=== PATIENT | female | born 1975 | race Caucasian/White ===

== ENCOUNTER 2016-08-01 09:09 | Inpatient (IN) ==
[2016-08-01] MEDS ORDERED: PEPCID PO ONE (09:25)
[2016-08-01] MEDS ORDERED: REGLAN PO ONE (09:25)
[2016-08-01] MEDS ORDERED: LR 1,000 ML IV SCH ×2 (09:25→10:00)
[2016-08-01] MEDS ORDERED: KEFZOL 1 GM/D5W 1 GM/50 ML IVPB IV PRN (09:25)
[2016-08-01] MEDS ORDERED: LR 500 ML IV ONE (09:25)
[2016-08-01] MEDS ORDERED: REGLAN IV ONE (09:30)
[2016-08-01] MEDS ORDERED: PEPCID IV ONE (09:30)
[2016-08-01] MEDS ORDERED: BICITRA PO ONE (09:30)
--- NOTE | 2016-08-01 09:51 | HISTORY AND PHYSICAL ---
ADMITTING PHYSICIAN: Dr. Serrano. ADMITTING DIAGNOSES: 1. 37-week . 1. Previous section. 2. Advanced maternal age. 3. Chronic hypertension. 4. Diabetes. 5. Morbid obesity. 6. Undesired fertility. SUMMARY: Dorene Melvin is a 41-year-old 2, para 2-0-0-2. Her first ended in a section for twins. She is requesting repeat . She also desires permanent tubal sterilization. She understands this is a permanent nonreversible procedure. She has been followed closely in our office and at Dr. Mcconnell, our maternal medicine specialist. By Dr. Mcconnell has recommended delivery at 37 weeks due to her complications of diabetes, advanced maternal age, chronic hypertension and history of DVT for which she is on Lovenox. She has taken Lantus and metformin for her diabetes. She is on labetalol for chronic hypertension. PAST MEDICAL HISTORY: Patient has history of morbid obesity, chronic hypertension and diabetes. Her gallbladder has been removed. Appendix has also been removed. She has had a tonsillectomy. She has history of DVTs. ALLERGIES: Sulfa drugs and Bactrim. CURRENT MEDICATIONS: Include Lovenox, Lantus, metformin and labetalol. PHYSICAL EXAMINATION: GENERAL: Shows a morbidly obese female. Weight is 391 pounds. This is a 75-pound weight gain during this . VITAL SIGNS: Blood pressure is 149/98. CARDIOVASCULAR: Regular rate and rhythm without murmurs, rubs, or gallops. PULMONARY: Clear. BREASTS: No masses. ABDOMEN: Gravid. Cervix is closed. EXTREMITIES: 2+ edema. IMPRESSION: 1. Term . 2. Previous section requesting repeat section. 3. Undesired fertility. 4. Advanced maternal age. 5. Chronic hypertension. 6. Diabetes. 7. History of deep vein thrombosis. PLAN: Will proceed with repeat and tubal sterilization. Risks of the surgery including pain, bleeding, infection, bowel, bladder injury and anesthesia complications have been discussed. She understands the failure rate and nonreversible nature of tubal sterilization. cc: Tristan Serrano MD
[2016-08-01] MEDS ORDERED: XYLOCAINE-MPF 1% 5 ML ONE (10:16)
[2016-08-01 10:50] LABS: MANUAL DIFF NEEDED? NO
[2016-08-01 10:53] LABS: BASO% 0.4 % (0.0-0.8); EOS# 0.08 X1000 (0.0-0.7); EOS% 0.8 % (0.0-10.0); HEMATOCRIT 38.2 % (37.0-47.0); HEMOGLOBIN 13.2 g/dL (12.0-16.0); IMM GRAN# 0.04 X1000 (0.0-0.04); IMM GRAN% 0.4 % (0.0-0.5); LYMPH# 2.04 X1000 (1.2-3.4); LYMPH% 19.7 % (20.5-51.1); MCH 31.5 PG (27-31); MCHC 34.6 g/dL (33-37); MCV 91.2 FL (81-99); MONO# 0.88 X1000 (0.11-0.59); MONO% 8.5 % (1.7-9.3); MPV 11.4 FL (7.4-10.4); NEUT% 70.2 % (42.2-75.2); PLT 179 X1000 (130-400); RBC 4.19 XMIL (4.2-5.4)
[2016-08-01] MEDS ORDERED: FENTANYL ONE ×2 (12:03→13:47)
[2016-08-01] MEDS ORDERED: DURAMORPH ONE ×2 (12:03→13:48)
[2016-08-01] MEDS ORDERED: METHERGINE ONE (12:04)
[2016-08-01] MEDS ORDERED: PITOCIN 20 UNITS/LR 20 UNITS/1,000 ML IV.SOLN ONE ×2 (12:04→15:07)
[2016-08-01 12:13] LABS: URINE SOURCE VOIDED
[2016-08-01 12:20] LABS: BILIRUBIN URINE NEGATIVE (NEGATIVE); BLOOD URINE 2+ (NEGATIVE); CLARITY SL. CLOUDY (CLEAR); COLOR AMBER; GLUCOSE URINE NEGATIVE (NEGATIVE); LEUKOCYTES URINE 1+ (NEGATIVE); NITRITE URINE NEGATIVE (NEGATIVE); PH URINE 6.5; SP GRAVITY URINE 1.015; UROBILINOGEN URINE 1+(1 mg/dL)
[2016-08-01] MEDS ORDERED: LABETALOL IV ONE (12:29)
[2016-08-01] MEDS ORDERED: XYLOCAINE-MPF 2% ONE (12:32)
[2016-08-01] MEDS ORDERED: M-M-R II VACCINE SUBQ ONE (13:32)
[2016-08-01] MEDS ORDERED: PITOCIN 20 UNITS/LR 20 UNITS/1,000 ML IV.SOLN IV ONE ×2 (13:32→16:51)
[2016-08-01] MEDS ORDERED: DEMEROL IM PRN ×2 (13:32→16:51)
[2016-08-01] MEDS ORDERED: CYTOTEC PO PRN ×2 (13:32→16:51)
[2016-08-01] MEDS ORDERED: MOTRIN PO PRN (13:32)
[2016-08-01] MEDS ORDERED: HYDROXYZINE IM PRN ×2 (13:32→16:51)
[2016-08-01] MEDS ORDERED: PERCOCET-10 PO PRN (13:32)
[2016-08-01] MEDS ORDERED: NORCO-5 PO PRN (13:32)
[2016-08-01] MEDS ORDERED: AMBIEN PO PRN ×2 (13:32→16:51)
[2016-08-01] MEDS ORDERED: BOOSTRIX VACCINE IM ONE (13:32)
[2016-08-01] MEDS ORDERED: DULCOLAX PR PRN ×2 (13:32→16:51)
[2016-08-01] MEDS ORDERED: MYLICON PO PRN ×2 (13:32→16:51)
[2016-08-01] MEDS ORDERED: PITOCIN IM PRN ×2 (13:32→16:51)
[2016-08-01] MEDS ORDERED: HYDROXYZINE PO PRN ×2 (13:32→16:51)
[2016-08-01] MEDS ORDERED: PERCOCET-5 PO PRN (13:32)
[2016-08-01] MEDS ORDERED: DEMEROL PO PRN ×4 (13:32→16:51)
[2016-08-01] MEDS ORDERED: PHENERGAN IM PRN ×2 (13:32→16:51)
[2016-08-01] MEDS ORDERED: NORCO-10 PO PRN (13:32)
[2016-08-01] MEDS ORDERED: TORADOL IV SCH (13:45)
[2016-08-01] MEDS ORDERED: LOVENOX SUBQ SCH (13:45)
[2016-08-01] MEDS ORDERED: PITOCIN 10 UNITS/LR 10 UNIT/1,000 ML IV.SOLN IV SCH ×2 (13:45→17:00)
[2016-08-01] MEDS ORDERED: ZOFRAN ONE (13:47)
[2016-08-01] MEDS ORDERED: PITOCIN ONE (13:47)
--- NOTE | 2016-08-01 17:47 | OPERATIVE NOTE ---
PROCEDURE DATE: 08/01/2016 SURGEON: Dr. Serrano. RATE CLERK PASSENGER: Dr. Bettencourt. ANESTHESIA: Epidural. OPERATION PERFORMED: Repeat low transverse section and tubal sterilization. PREOPERATIVE DIAGNOSES: 1. 37-week . 2. Previous section. 3. Advanced maternal age. 4. Chronic hypertension. 5. Diabetes. 6. Morbid obesity. 7. Undesired fertility. POSTOPERATIVE DIAGNOSES: 1. 37-week . 2. Previous section. 3. Advanced maternal age. 4. Chronic hypertension. 5. Diabetes. 6. Morbid obesity. 7. Undesired fertility. FINDINGS: At 1258 a 6-pound 9-ounce female infant was delivered in a vertex presentation. Apgars were 9 at 1 minute and 10 at 5 minutes. SUMMARY: Patient was taken back to the operating room and after attempt of spinal anesthesia an epidural anesthetic was placed. She was then placed in a supine position with a left lateral tilt. The abdomen was prepped and draped in the usual fashion. A Castrejon catheter was placed in the urinary bladder. Once satisfactory conduction anesthesia was demonstrated, a repeat vertical incision was made from the umbilicus to the symphysis. This was carried down through approximately 10 cm of adipose tissue to the fascia and the fascia was excised vertically. The rectus muscle was in midline. The peritoneum was entered. The lower uterine segment was identified and a low transverse incision was made well above the bladder. This incision was extended laterally using digital pressure. Membranes were ruptured revealing clear fluid. The infant's head was delivered this incision without difficulty. The shoulders and body delivered without complications. The oropharynx was bulb suctioned. The cord was clamped and cut. The infant was handed to the nurses for further care and evaluation. Cord blood was obtained. Placenta was manually removed. The uterus delivered on abdominal wall explored. All membrane fragments removed. Myometrium was then reapproximated using a running #1 chromic interlocking suture followed by several [id number] chromic sutures for complete hemostasis. Due to patient's desire for permanent nonreversible sterilization a Bells type tubal ligation was performed. A vascular window was made through the mesosalpinx and the tubes were tied proximally and distally and the section was and excised. Uterus placed back in pelvic cavity. Uterine incision and tubal ligation sites were examined and found to be hemostatic. First and 2nd sponge, instrument and needle count reported as correct as the peritoneum was closed using a running chromic suture. Third and final of sponge, instrument and needle count reported as correct the fascia was closed using running Vicryl sutures x2 and the adipose tissue was closed in layers using both interrupted and running Vicryl sutures. The skin edges reapproximated using sascha. Blood loss estimated at 500 mL. There were no complications. The patient went to the recovery room in stable condition. We will monitor her blood pressure and blood sugars. cc: Tristan Serrano MD
[2016-08-01] MEDS: GLUCOPHAGE PO SCH (17:58)
[2016-08-01] MEDS: TORADOL IV SCH ×2 (17:58→22:45)
[2016-08-01] MEDS: LOVENOX SUBQ SCH (17:59)
[2016-08-01] MEDS: MYLICON PO SCH ×2 (17:59→22:02)
[2016-08-01] MEDS ORDERED: MYLICON PO SCH (18:00)
[2016-08-01] MEDS ORDERED: NARCAN INJ PRN (18:25)
[2016-08-01] MEDS ORDERED: BENADRYL IV PRN (18:25)
[2016-08-01] MEDS ORDERED: ZOFRAN IV PRN ×2 (18:25)
[2016-08-01] MEDS ORDERED: ZOFRAN ODT PO PRN (18:25)
[2016-08-01] MEDS ORDERED: DILAUDID IV PRN (18:26)
[2016-08-01] MEDS ORDERED: PERICOLACE PO SCH (21:00)
[2016-08-01] MEDS: PERICOLACE PO SCH (22:03)
[2016-08-01] MEDS: TRANDATE PO SCH (22:03)
[2016-08-02] MEDS: TORADOL IV SCH ×2 (05:33→12:28)
[2016-08-02 06:54] LABS: HEMATOCRIT 35.2 % (37.0-47.0); HEMOGLOBIN 11.7 g/dL (12.0-16.0); MCH 30.6 PG (27-31); MCHC 33.2 g/dL (33-37); MCV 92.1 FL (81-99); MPV 11.6 FL (7.4-10.4); RBC 3.82 XMIL (4.2-5.4)
[2016-08-02] MEDS: GLUCOPHAGE PO SCH ×2 (07:39→16:38)
[2016-08-02] MEDS: PRILOSEC PO SCH (07:40)
[2016-08-02] MEDS: LOVENOX SUBQ SCH ×3 (08:18→21:24)
[2016-08-02] MEDS: MYLICON PO SCH ×4 (09:02→21:23)
[2016-08-02] MEDS: TRANDATE PO SCH ×2 (09:02→21:24)
[2016-08-02] MEDS ORDERED: PERCOCET-5 PO PRN (09:52)
[2016-08-02] MEDS: PERCOCET-10 PO PRN ×3 (10:26→21:23)
[2016-08-02] MEDS ORDERED: LR 1,000 ML IV SCH ×2 (13:32→16:51)
[2016-08-02] MEDS: MOTRIN PO PRN (21:23)
[2016-08-02] MEDS: PERICOLACE PO SCH (21:23)
[2016-08-03] MEDS: PERCOCET-10 PO PRN ×2 (04:22→10:24)
[2016-08-03] MEDS: MOTRIN PO PRN (04:23)
[2016-08-03] MEDS: PRILOSEC PO SCH (07:33)
[2016-08-03] MEDS: GLUCOPHAGE PO SCH (07:34)
[2016-08-03 07:50] VITALS: BP 186/85
[2016-08-03] MEDS: TRANDATE PO SCH (09:31)
[2016-08-03] MEDS: MYLICON PO SCH (09:31)
[2016-08-03] MEDS: LOVENOX SUBQ SCH (09:31)
--- NOTE | 2016-08-03 19:45 | DISCHARGE SUMMARY ---
ADMISSION DATE: 08/01/2016 DISCHARGE DATE: 08/03/2016 PRINCIPAL DIAGNOSES: 1. Thirty-seven week intrauterine . 2. Advanced maternal age. 3. Diabetes. 4. Hypertension. 5. Previous section. PRINCIPAL PROCEDURE: 1. Repeat low transverse section. 2. Tubal ligation. HOSPITAL COURSE: Patient of Dr. Serrano underwent a repeat section and tubal ligation. She had a female infant born weighing 6 pounds 9 ounces, Apgars 9 and 10. Postoperatively she did well. Postoperative hematocrit was stable. Blood sugars remained good. She was continued on labetalol for blood pressure. At this time, she is discharged home on her present dose of labetalol and Percocet for pain. She will be followed up in the office in a week. Discharge instructions were given. cc: MD Tristan Ro MD
== END 2016-08-03 11:05 | disposition home or self-care (01) ==
LOC: P.LD 09:09 → P.WC 16:00
PROVIDERS: ADMIT Obstetrics & Gynecology; ATTEND Obstetrics & Gynecology